=== PATIENT | male | born 1940 | race Caucasian/White ===

== ENCOUNTER → 2018-09-22 | Outpatient (REF) ==
[~2018-09-22] MED LIST: ALEVE 220MG220 MG PO; ALLERGY TABLET PO; ASPIRIN 32325 MG/TAB PO; CEPHALEXIN500 M1 PO; CO Q-1010 M1 PO; DRAMAMINE 50MG50 MG PO; DYAZIDE 25 MG-31 CAP PO; FOLIC ACID 11 MG/TA1 PO; GINKGO60 MG PO; GLUCOPHAGE1000 MG PO; GLUCOSAMINE 1000 PO; JANTOVEN5 MG PO; LOPID 600M600 MG/TAB PO; LOPRESSOR 550 MG/TAB PO; MULTI VITAMINS1 TAB PO; NORCO 325 MG-51 TAB PO; OBSTETRIX PO; SLO-NIACIN750 MG PO; TYLENOL 500MG500 MG PO; ULTRAM 50MG TAB50 MG PO; VITAMINE200 PO
== END ==
LOC: ZMSC 10:39
DX: Z01.89 Encounter for other specified special examinations (principal)